=== PATIENT | female | born 1980 | race Caucasian/White ===

== ENCOUNTER 2017-01-29 20:12 | Emergency (ER) | payer BC, SELFPAY | END 2017-01-29 20:42 | disposition home or self-care (01) | PROVIDERS: Emergency Provider Nurse Practitioner; Family Provider Internal Medicine Adolescent Medicine; Visit Provider Nurse Practitioner | DX: J06.9 Acute upper respiratory infection, unspecified (principal) | CPT/HCPCS: 87804; 87880; 96372; 99201 ==

== ENCOUNTER → 2017-12-16 10:28 | Outpatient (POV) | payer BC, SELFPAY | PROVIDERS: Visit Provider Dermatology | DX: Z00.00 Encounter for general adult medical examination without abnormal findings (principal) ==

== ENCOUNTER → 2018-01-20 15:16 | Outpatient (POV) | payer BC, SELFPAY | PROVIDERS: Visit Provider Dermatology | DX: Z00.00 Encounter for general adult medical examination without abnormal findings (principal) ==

== ENCOUNTER → 2018-01-20 15:27 | Outpatient (POV) | payer BC, SELFPAY | PROVIDERS: Visit Provider Dermatology | DX: Z00.00 Encounter for general adult medical examination without abnormal findings (principal) ==

== ENCOUNTER → 2019-01-19 15:06 | Outpatient (CLI) | payer BC, SELFPAY ==
--- NOTE | 2019-01-19 15:11 | US_ITS ---
PROCEDURE: US TRANSVAGINAL CLINICAL INDICATION: US T/V- Pelvic pain COMPARISON: No exams were available for comparison FINDINGS: 08/17/2014 UTERUS: 10.1 x 5.1x 6.3 centimeters with a combined endometrial thickness of 1.1 centimeter LEFT OVARY: 2.0x2.6x 2.0 centimeter with a volume of 5.7 cubic centimeter. RIGHT OVARY: 1.8x3.0x1.4 centimeter with a volume of 4.2 cubic centimeter. No abnormal adnexal mass or fluid collection is apparent. IMPRESSION: Relative uterine enlargement without discrete lesion. Dictated by: Marito Lance 01/19/2019 16:39 Electronically signed by Marito Lance in [place] 01/19/2019 16:39
== END ==
PROVIDERS: PCP Internal Medicine Adolescent Medicine; Visit Provider Nurse Practitioner Obstetrics & Gynecology
DX: R10.2 Pelvic and perineal pain (principal)
CPT/HCPCS: 76830

== ENCOUNTER 2019-11-11 10:44 | Outpatient (RCR) | payer BC, SELFPAY ==
--- NOTE | 2019-11-11 11:49 | HMH.PTOPEV ---
PT Outpatient Evaluation Rehab PT Outpatient Evaluation Start: 11/11/19 11:18 Freq: Status: Active Protocol: Document 11/11/19 11:18 MIGUEL (Rec: 11/11/19 11:49 MIGUEL [id number]) Electronically Signed By Jethro Bedolla, PT 11/11/19 11:18 Outpatient Therapy Subjective History Subjective History Pt reports acute onset R sided neck pain beginning ~1 week ago. Pt reports 'I just woke up very stiff', with R sided neck pain, referred pain into R SH blade area, and now preogressed with radicular s/s down R UE into bicep/tricep area-'heavy and weak'. Chief Complaint Pain,Stiff,Paresthesia, Weakness Symptom Type Ache,Dull Symptoms Relieved By Rest/Positioning,Heat, Prescription Meds Symptoms Aggravated By Physical Activity,Lifting Prior Functional Limitations None Current Functional Limitations Reaching,Lifting,Housework Symptom Description Constant but Variable Level of pain today (0-10) 5 Pain scale - at its best (0-10) 5 Pain scale - at its worst (0-10) 8 Cervical Eval Palpation Cervical Muscles R CT Junction,L CT Junction,R Upper Trapezius,L Thoracic Paraspinals Cervical/Thoracic Palpation Findings Tenderness,Trigger Point, Muscle Guarding Posture Head/C-Spine Posture Sitting Position Neutral Position Head/C-Spine Posture Standing Position Neutral Position Flexibility Deficits Upper Trapezius Muscle Length (R) Moderate Tightness Levaetor Scapulae Muscle Length (R) Moderate Tightness Scalene Group Muscle Length (R) Moderate Tightness Passive Joint Mobility Cervical PIVM Dec: R OA L OA R AA L AA R C2/3 L C2/3 R C3/4 L C3/4 R C4/5 L C4/5 R C5/6 L C5/6 R C6/7 L C6/7 R C7/T1 L C7/T1 AROM Cervical Spine Extension Active Range of 0-40 Motion (degrees) Cervical Spine Flexion Active Range of 0-30 Motion (degrees) Cer
== END 2019-11-11 10:50 | disposition home or self-care (01) ==
LOC: PT 10:44
PROVIDERS: PCP Internal Medicine Adolescent Medicine; Visit Provider Nurse Practitioner Family
DX: S16.1XXA Strain of muscle, fascia and tendon at neck level, initial encounter (principal); M62.838 Other muscle spasm
CPT/HCPCS: 20560; 97010; 97014; 97110; 97140; 97163; G0283

== ENCOUNTER 2020-02-08 10:30 | Outpatient (RCR) | payer BC, SELFPAY | END 2020-02-08 10:35 | disposition home or self-care (01) | LOC: PT 10:30 | PROVIDERS: PCP Internal Medicine Adolescent Medicine; Visit Provider Nurse Practitioner Family | DX: S16.1XXA Strain of muscle, fascia and tendon at neck level, initial encounter (principal); M62.838 Other muscle spasm | CPT/HCPCS: 20560; 97010; 97012; 97014; 97110; 97140; 97163; G0283 ==

== ENCOUNTER 2020-05-07 18:56 | Emergency (ER) | payer BC, SELFPAY ==
[2020-05-07 18:58] VITALS: BP 156/97; PULSE 110; RESP 16; TEMP 36.5; O2SAT 98; BMI 30.1
[2020-05-07 19:18] VITALS: BMI 30.1
[2020-05-07 19:27] LABS: Potassium 3.4 mmoL/L (3.5-5.1); Sodium 137 mmol/L (136-145)
[2020-05-07 19:28] LABS: Chloride 100 mmol/L (98-107)
[2020-05-07 19:30] VITALS: BP 132/92; PULSE 81; RESP 14; O2SAT 100
[2020-05-07 19:30] LABS: Alanine Aminotransferase 116 U/L (12-78); Albumin Level 5.1 g/dl (3.5-5.0); Albumin/Globulin Ratio 1.2 (1.1-1.8); Alkaline Phosphatase 117 U/L (38-126); Anion Gap 18.4 mEq/L (5-15); Aspartate Amino Transferase 105 U/L (14-36); Bilirubin,Total 0.9 mg/dl (0.2-1.3); Blood Urea Nitrogen 14 mg/dl (7-17); Carbon Dioxide 22 mmol/L (22.0-30.0); Creatinine Clearance Estimated 129 mL/min (50-200); Estimated Glomerular Filt Rate 92 ml/min (>60); GFR (African American) 112 ML/MIN (>60); Globulin 4.3 g/dL (1.3-3.2); Total Protein,Serum 9.4 g/dl (6.3-8.2)
[2020-05-07 19:31] LABS: Calcium 9.8 mg/dl (8.4-10.2); Glucose 113 mg/dl (74-100)
[2020-05-07 19:32] LABS: Basophils # 0.1 K/mm3 (0-0.2); Basophils % 1.1 % (0.1-2.0); Eosinophils # 0.3 K/mm3 (0.0-0.4); Eosinophils % 3.2 % (0.1-12.0); Hematocrit 47.8 % (37.0-47.0); Hemoglobin 16.3 g/dL (12.2-16.2); Lymphocytes % 20.3 % (10-50); Mean Corpuscular HGB Conc 34.2 g/dL (31.8-35.4); Mean Corpuscular Hemoglobin 29.6 pg (27.0-31.2); Mean Corpuscular Volume 86.5 fl (81-99); Mean Platelet Volume 8.3 fl (7.4-10.4); Monocytes % 10.7 % (1.7-9.3); Neutrophils # 6.2 K/mm3 (1.8-7.8); Neutrophils % 64.8 % (37.0-80.0); Platelet Count 311 K/mm3 (142-424); Red Blood Count 5.52 M/mm3 (4.20-5.40); Red Cell Distribution Width 12.1 % (11.5-17.5); White Blood Count 9.6 K/mm3 (4.8-10.8)
--- NOTE | 2020-05-07 19:35 | PC.NURSE ---
Pt does not want CT. She states she just want some relief.
[2020-05-07 19:37] LABS: Microscopic, Urine URINE MICROSCOPIC (MICROSCOPIC)
[2020-05-07 19:39] LABS: Adenovirus,PCR Not Detected (NotDetected); Appearance,Urine SL CLOUDY (Clear); Blood, Urine TRACE-I (Negative); Color,Urine YELLOW (Yellow); Coronavirus NL63 Not Detected (NotDetected); Coronovirus HKU1,PCR Not Detected (NotDetected); Glucose,Urine (UA) Negative (Negative); Ketones,Urine TRACE (Negative); Leukocyte Esterase,Urine Negative (Negative); Nitrate,Urine Negative (Negative); Protein,Urine 2+ (Negative); Specific Gravity, Urine >= 1.030 (1.005-1.030); Urobilinogen,Urine 0.2 EU/dl (0.2)
[2020-05-07 19:40] LABS: Bordetella Pertussis Not Detected (NotDetected); Chlamydophila Pneumoniae, PCR Not Detected (NotDetected); Coronavirus 19, PCR Not Detected (NotDetected); Coronavirus 229E Not Detected (NotDetected); Coronavirus OC43 Not Detected (NotDetected); Human Metapneumovirus Not Detected (NotDetected); Influenza A, PCR Not Detected (NotDetected); Influenza AH1, 2009 Not Detected (NotDetected); Influenza AH1, PCR Not Detected (NotDetected); Influenza AH3,PCR Not Detected (NotDetected); Influenza B, PCR Not Detected (NotDetected); Mycoplasma Pneumoniae, PCR Not Detected (NotDetected); Parainfluenza 1, PCR Not Detected (NotDetected); Parainfluenza 2, PCR Not Detected (NotDetected); Parainfluenza 3, PCR Not Detected (NotDetected); Parainfluenza 4, PCR Not Detected (NotDetected); Respiratory Syncytial Virus Not Detected (NotDetected); Rhinovirus/Enterovirus Not Detected (NotDetected)
--- NOTE | 2020-05-07 19:44 | HMH.EDGENADL ---
ED Disposition Clinical Impression: Gastroenteritis Disposition: Home, Self-Care Condition on Discharge: Fair Instructions: DI for Diarrhea and Traveler's Diarrhea -- Adult, DI for Nausea -- Adult Additional Instructions: Zofran as needed for nausea and vomiting. Rest, plenty of fluids. Additional instructions for VOMITING/DIARRHEA: See your physician as soon as possible for further evaluation. Return immediately if severe abdominal pain, uncontrollable vomiting, shortness of breath, fever, vomiting of blood or abdominal distention. Prescriptions: Ondansetron [Zofran 4mg ODT] 4 mg PO TIDP PRN #10 tab.rapdis PRN Reason: Nausea And Vomiting Transmission Status: Received by [facility] Referrals: Enio Bliss MD [Primary Care Provider] - - Critical Care Critical Care Time: No Attestation: On , the high probability of a clinically significant, sudden or life threatening deterioration of the following system(s) required my full and direct attention, intervention and personal management. The time I documented below is in addition to time spent performing reported procedures but includes the following listed in this critical care notation. Medical Decision Making - Joby Inquiry Pt receiving controlled substance: No Vital Signs: 05/07/20 18:58 Temperature 97.7 F Temperature Source Oral Pulse Rate [Left Radial] 110 H Respiratory Rate 16 Blood Pressure [Right Arm] 156/97 H Blood Pressure Mean [Right Arm] 116 Blood Pressure Source [Right Arm] Automatic Cuff Blood Pressure Position [Right Arm] Supine 02 Sat by Pulse Oximetry 98 Oxygen Delivery Method Room Air - Lab Data Lab Results 05/07/20 19:15: WBC 9.6, RBC 5.52 H, Hgb 16.3 H, Hct 47.8 H, MCV 86.5, MCH 29.6, MCHC 34.2, RDW 12.1, Plt Count 311, MPV 8.3, Neut % (Auto) 64.8, Lymph % (Auto) 20.3, [place] % (Auto) 10.7 H, Eos % (Auto) 3.2, Baso % (Auto) 1.1, Neut # (Auto) 6.2, Lymph # (Auto) 2.0, [place] # (Auto) 1.0, Eos # (Auto) 0.3, Baso # (Auto) 0.1 05/07/20 19:15: Sodium 137, Potassium 3.4 L, Chloride 100, Carbon Dioxide 22, Anion Gap 18.4 H, BUN 14, Creatinine 0.70, Estimated Creat Clear 129, Estimated GFR 92, Est GFR ( Amer) 112, Glucose 113 H, Calcium 9.8, Total Bilirubin 0.9, AST 105 H, ALT 116 H, Alkaline Phosphatase 117, Total Protein 9.4 H, Albumin 5.1 H, Globulin 4.3 H, Albumin/Globulin Ratio 1.2 Result diagrams: 05/07/20 19:15 05/07/20 19:15 Orders (Tests/Meds): ED MEDICATIONS Generic Name Dose Route Start Last Admin Trade Name Freq PRN Reason Stop Dose Admin Sodium Chloride 1,000 mls @ 999 mls/hr 05/07/20 19:30 05/07/20 19:20 Sod Chlor 0.9% 1000ml Bag IV 05/07/20 20:30 999 mls/hr .Q1H1M GRAEME Administration Discontinued Medications Generic Name Dose Route Start Last Admin Trade Name Freq PRN Reason Stop Dose Admin Ondansetron HCl 4 mg 05/07/20 19:19 05/07/20 19:20 Ondansetron 4mg/2ml Vial IV 05/07/20 19:20 4 mg ONCE ONE Administration ORDERS Category Date Time Status C-Reactive Protein Stat Lab 05/07/20 19:15 Received Diarrhea 6-11 Panel, Cdiff PCR Stat Lab 05/07/20 19:43 Ordered Erythrocyte Sedimentation Rate Stat Lab 05/07/20 19:15 Received Full Resp Panel w/COVID ([facility]) Routine Lab 05/07/20 19:30 Received Urinalysis and Microscopic Stat Lab 05/07/20 19:30 Received Medical Decision Narrative: Discussed elevated liver enzymes. Patient says this is not a new finding, she has discussed it with her primary care doctor when she has had labs done in the office. General Adult HPI - General Chief complaint: Nausea/Vomiting/Diarrhea Stated complaint: n/v/d Time Seen by Provider: 05/07/20 19:35 Mode of Arrival: Ambulatory Limitations: No Limitations Description of Symptoms (Recalled from ER Triage Doc. by RN): Pt c/o N/V/D since 05/03. She reports decreased PO intake despite PO zofran and phenergan. She says her has had same symptoms and was covid tested with ne
[2020-05-07 19:52] LABS: C-Reactive Protein 18.4 mg/L (0-4)
[2020-05-07 20:00] VITALS: BP 125/84; PULSE 70; RESP 16; O2SAT 99
[2020-05-07 20:02] LABS: Bilirubin,Urine Negative (Negative)
[2020-05-07 20:03] LABS: Amorphous Sediment,Urine 1+ /lpf; Mucus,Urine 4+ /lpf; Squamous Epithelial Cell,Urine 20-50 #/hpf (0-5)
[2020-05-07 20:04] LABS: Erythrocyte Sedimentation Rate 15 mm/hr (0-20)
[2020-05-07 20:30] VITALS: BP 118/69; PULSE 81; RESP 18; O2SAT 100
[2020-05-07 21:08] LABS: Adenovirus F 40/41, stool Not Detected (NotDetected); Astrovirus Not Detected (NotDetected); Campylobacter Not Detected (NotDetected); Clostridium Difficile A/B, PCR Not Detected (NotDetected); Cyclospora Cayetanesis Not Detected (NotDetected); Entamoeba histolytica Not Detected (NotDetected); Enteroaggregative E coli Not Detected (NotDetected); Enteropathogenic E coli Not Detected (NotDetected); Enterotoxigenic E coli Not Detected (NotDetected); Giardia lamblia Not Detected (NotDetected); Norovirus Not Detected (NotDetected); Plesimonas Shigalloides, PCR Not Detected (NotDetected); Rotavirus A Not Detected (NotDetected); Salmonella, PCR Not Detected (NotDetected); Sapovirus Not Detected (NotDetected); Shiga-like toxin E coli Not Detected (NotDetected); Shigella Enterovasive E coli Not Detected (NotDetected); Vibrio Cholerae Not Detected (NotDetected); Vibrio, PCR Not Detected (NotDetected); Yersinia Entercolitica, PCR Not Detected (NotDetected)
[2020-05-07 21:55] VITALS: BP 125/81; PULSE 72; RESP 14; TEMP 36.4; O2SAT 99
[2020-05-10 08:35] LABS: Cryptosporidium Detected (NotDetected)
== END 2020-05-07 21:58 | disposition home or self-care (01) ==
PROVIDERS: Emergency Medicine; Emergency Provider Emergency Medicine; PCP Internal Medicine Adolescent Medicine
DX: Z20.822 Contact with and (suspected) exposure to COVID-19 (principal); K52.9 Noninfective gastroenteritis and colitis, unspecified
CPT/HCPCS: 80053; 81001; 85025; 85651; 86140; 87506; 87581; 87633; 87798; 96365; 96366; 96375; 99283; J2405

== ENCOUNTER → 2020-07-11 14:53 | Outpatient (POV) | payer BC, SELFPAY | PROVIDERS: Visit Provider Dermatology | DX: Z00.00 Encounter for general adult medical examination without abnormal findings (principal) ==

== ENCOUNTER → 2020-07-26 07:58 | Outpatient (CLI) | payer BC, SELFPAY ==
--- NOTE | 2020-07-26 07:58 | MM_ITS ---
PROCEDURE: MM DIG SCREENING MAMM BI W/CAD Digital Breast Tomosynthesis Included CLINICAL INDICATION: Routine Screening Mammogram COMPARISON: MG DMDBAV DIG MAMM-DX MONAE W/AVWS W/CAD from 05/01/2016 TECHNIQUE: Standard CC and MLO images and 3D Tomosynthesis was obtained. R2 CAD reviewed. FINDINGS: Breast parenchyma is heterogeneously dense which may lower the sensitivity of mammography. No new dominant mass or indirect evidence of malignancy. No suspicious type microcalcifications. There benign-appearing calcifications scattered in both breasts. IMPRESSION: Benign bilateral digital screening mammograms. BI-RAD Category: 2 Benign Finding FOLLOW-UP: 1 YR 1 Year Follow-up (A letter has been sent to the patient regarding results of the study.) Dictated by: Rony Mckinney MD 07/27/2020 11:03 Rony Mckinney MD in [place] 07/27/2020 11:03
[2020-07-26 09:16] LABS: Basophils % 0.6 % (0.1-2.0); Eosinophils # 0.2 K/mm3 (0.0-0.4); Eosinophils % 2.4 % (0.1-12.0); Hematocrit 36.3 % (37.0-47.0); Hemoglobin 12.9 g/dL (12.2-16.2); Lymphocytes # 2.2 K/mm3 (0.7-4.5); Mean Corpuscular HGB Conc 35.4 g/dL (31.8-35.4); Mean Corpuscular Hemoglobin 30.6 pg (27.0-31.2); Mean Corpuscular Volume 86.5 fl (81-99); Mean Platelet Volume 7.9 fl (7.4-10.4); Monocytes # 0.4 K/mm3 (0.1-1.0); Monocytes % 5.7 % (1.7-9.3); Neutrophils # 4.1 K/mm3 (1.8-7.8); Neutrophils % 59.3 % (37.0-80.0); Platelet Count 263 K/mm3 (142-424); Red Cell Distribution Width 12.9 % (11.5-17.5); White Blood Count 6.9 K/mm3 (4.8-10.8)
[2020-07-26 10:50] LABS: Alanine Aminotransferase 23 U/L (12-78); Albumin Level 4.3 g/dl (3.5-5.0); Albumin/Globulin Ratio 1.4 (1.1-1.8); Alkaline Phosphatase 50 U/L (38-126); Anion Gap 10.3 mEq/L (5-15); Aspartate Amino Transferase 28 U/L (14-36); Bilirubin,Total 0.5 mg/dl (0.2-1.3); Blood Urea Nitrogen 11 mg/dl (7-17); Carbon Dioxide 25 mmol/L (22.0-30.0); Chloride 108 mmol/L (98-107); Chol/HDL Ratio 3.8 (1-3.5); Cholesterol 199 mg/dl (140-200); Estimated Glomerular Filt Rate 110 ml/min (>60); GFR (African American) 133 ML/MIN (>60); Glucose 86 mg/dl (74-100); HDL Cholesterol 52 mg/dl (40-60); Potassium 4.3 mmoL/L (3.5-5.1); Sodium 139 mmol/L (136-145); Total Protein,Serum 7.3 g/dl (6.3-8.2); Triglycerides 71 mg/dl (30-150); VLDL Cholesterol 14 mg/dL (0-40)
[2020-07-26 11:01] LABS: Direct LDL Cholesterol 114.73 mg/dL (100-129)
== END ==
PROVIDERS: PCP Internal Medicine Adolescent Medicine; Visit Provider Nurse Practitioner Obstetrics & Gynecology
DX: Z12.31 Encounter for screening mammogram for malignant neoplasm of breast (principal); Z01.419 Encounter for gynecological examination (general) (routine) without abnormal findings
CPT/HCPCS: 36415; 77063; 77067; 80053; 80061; 85025

== ENCOUNTER 2021-01-27 20:48 | Emergency (ER) | payer BC, SELFPAY ==
[2021-01-27 20:59] VITALS: BP 153/77; PULSE 71; RESP 16; TEMP 36.5; O2SAT 100; BMI 29.2
--- NOTE | 2021-01-27 21:11 | HMH.EDUTC ---
[facility] [place] Dis[place] Clinical Impression: Jaw pain, Fever blister Disposition: Home, Self-Care Condition on Discharge: Good Instructions: DI for Temporomandibular Disorder, DI for Cold Sores Additional Instructions: Take the medications as directed. Follow up with your regular doctor. Follow up with your dentist. GO TO THE ER FOR ANY WORSENING SYMPTOMS The baclofen is a muscle relaxer. Don't take it if you take your flexeril. That would make you too drowsy. the baclofen will make you drowsy, so don't drive or operate heavy machinery after taking it. Prescriptions: Baclofen 20 mg PO TIDP PRN #30 tab PRN Reason: Muscle Spasm Transmission Status: Received by [id number] methylPREDNISolone [Medrol] 4 mg PO DIRECTED 6 Days #21 packet Transmission [facility]: [facility] Acyclovir [Zovirax 400mg tablet] 400 mg PO TID 7 Days #21 tab Transmission Status: Received by [facility] Acyclovir [Zovirax 5% ointment 5gm] 1 applicatio TP 5XDAY 7 Days #5 gm Transmission Status[facility] Referrals: Enio Bliss MD [Primary Care Provider] - Time of Disposition: 21:44 Medical Decision Making - Medical Records Medical records reviewed: No: I reviewed the patient's medical records. - Joby Inquiry Pt receiving controlled substance: No Vital Signs: 01/27/21 20:59 01/27/21 21:19 Temperature 97.7 F 97.7 F Temperature Source Oral Pulse Rate 71 Pulse Rate [Left] 71 Respiratory Rate 16 16 Blood Pressure 153/77 H Blood Pressure [Right Arm] 153/77 H Blood Pressure Mean [Right Arm] 102 02 Sat by Pulse Oximetry 100 Orders (Tests/Meds): ED MEDICATIONS Discontinued Medications Generic Name Dose Route Start Last Admin Trade Name Freq PRN Reason Stop Dose Admin Ketorolac Tromethamine 60 mg 01/27/21 21:11 01/27/21 21:18 Ketorolac 60mg/2ml Vial IM 01/27/21 21:12 60 mg ONCE ONE Administration Methylprednisolone Sodium Succinate 125 mg 01/27/21 21:11 01/27/21 21:16 Methylprednisolone Sod Succ 125mg Vial IM 01/27/21 21:12 125 mg ONCE ONE Administration [facility] [place] HPI - General Stated complaint: jaw/tooth ache Time Seen by Provider: 01/27/21 21:13 Mode of Arrival: Ambulatory Source of Information: Patient Limitations: No Limitations Description of Symptoms (Recalled from Triage Doc. by RN): pt c/o L lower jaw pain ongoing since 01/23. she called her dentist who sent her in some flexeril. pt states it has not been helping. HEENT Symptoms (Recalled from RN notes): Yes (L jaw pain) Resp Symptoms (Recalled from RN notes): No Skin Symptoms (Recalled from RN notes): No MS Symptoms (Recalled from RN notes): No Functional Status (Recalled from RN notes): wnl - History of Present Illness Provider Complaint: She states that for the past 1 week she has been having worsening left jaw pain. She has a history of tmj and it feels like that is flaring up. She called her dentist earlier in the week and she was prescribed flexeril, which usually helps. It has not helped this time. - Related Data Previous Rx's Medication Instructions Recorded Ondansetron [Zofran 4mg ODT] 4 mg PO TIDP PRN #10 tab.rapdis 05/07/20 Acyclovir [Zovirax 400mg tablet] 400 mg PO TID 7 Days #21 tab 01/27/21 Acyclovir [Zovirax 5% ointment 5gm] 1 applicatio TP 5XDAY 7 Days #5 gm 01/27/21 Baclofen 20 mg PO TIDP PRN #30 tab 01/27/21 methylPREDNISolone [Medrol] 4 mg PO DIRECTED 6 Days #21 01/27/21 packet Allergies Allergy/AdvReac Type Severity Reaction Status Date / Time promethazine [From Phenergan] Allergy Intermediate CAN TAKE Verified 07/03/20 10:02 PO NOT IV, MAKES SKIN CRAWL pseudoephedrine Allergy Unknown - Verified 07/03/20 10:02 - Worker's Comp Is this a Worker's Comp case?: No [facility] History - Hepatitis A Screen Drug use history?: No High risk sexual behaviors?: No History of sexually transmitted
[2021-01-27 21:19] VITALS: BP 153/77; PULSE 71; RESP 16; TEMP 36.5
== END 2021-01-27 21:50 | disposition home or self-care (01) ==
PROVIDERS: Emergency Provider Nurse Practitioner Family; PCP Internal Medicine Adolescent Medicine
DX: R68.84 Jaw pain (principal); B00.1 Herpesviral vesicular dermatitis
CPT/HCPCS: 96372; 99202; G0463

== ENCOUNTER 2021-08-02 15:39 | Emergency (ER) | payer BC, SELFPAY ==
[2021-08-02 16:09] VITALS: BP 141/78; PULSE 70; RESP 18; TEMP 36.6; O2SAT 100; BMI 30.1
[2021-08-02 16:27] LABS: Apearance,Urine Slightly Cloudy (Clear); Bilirubin,Urine Negative (Negative); Blood, Urine Negative (Negative); Color,Urine Dark Yellow (Yellow); Glucose,Urine (UA) Negative (Negative); Ketones,Urine TRACE (Negative); PH,Urine 6.5 (5.0-8.5); Protein,Urine 1+ (Negative); Specific Gravity, Urine >= 1.030 (1.005-1.030); UTC Leukocyte Esterase,Urine Trace (Negative); UTC Nitrate,Urine Negative (Negative); Urobilinogen,Urine 0.2 EU/dl (0.2)
[2021-08-02 16:33] VITALS: BP 170/89; PULSE 72; RESP 17; TEMP 36.8; O2SAT 100; BMI 30.1
--- NOTE | 2021-08-02 16:36 | CT_ITS ---
PROCEDURE INFORMATION: Exam: CT Abdomen And Pelvis Without Contrast Exam date and time: 08/02/2021 4:46 PM Age: 41 years old Clinical indication: Abdominal pain; Flank; Right; Prior surgery; Surgery date: 6+ months; Surgery type: PT states that she has had her gallbladder and appendix removed; Additional info: RT flank pain TECHNIQUE: Imaging protocol: Computed tomography of the abdomen and pelvis without contrast. Radiation optimization: All CT scans at this facility use at least one of these dose optimization techniques: automated exposure control; mA and/or kV adjustment per patient size (includes targeted exams where dose is matched to clinical indication); or iterative reconstruction. COMPARISON: US TRANSVAGINAL 01/19/2019 3:13 PM FINDINGS: Lungs: No acute findings in the visualized lower lungs. No consolidation. Diaphragm: A minimal hiatal hernia. Liver: Upper normal liver size. No mass seen on this nonenhanced exam. Gallbladder and bile ducts: Cholecystectomy clips. Biliary tree is within normal limits. Pancreas: The pancreas is normal. Spleen: The spleen is normal. Adrenal glands: The adrenal glands are normal. Kidneys and ureters: At least moderate right hydronephrosis and proximal to mid hydroureter. The distal ureter is not significantly dilated, and slightly indistinct. 3 mm rounded calcification abutting the distal right ureter suspicious for obstructing stone just above the ureterovesical junction, series 3, image 101, and coronal series 1001, image 33. This has HU density of 340, but is poorly seen on the manager economic topogram due to tiny size. No hydronephrosis, hydroureter or obstructing calcified stones on the left. No other calcified renal stones. Stomach and bowel: The colon is diffusely empty and contracted which likely accounts for thickened appearance, differential would be colitis. There is no pericolic fluid, no extraluminal gas bubbles.There is no evidence of intestinal perforation or obstruction. Minimal hiatal hernia, no acute findings in the stomach. Appendix: Post appendectomy. Intraperitoneal space: There is no free intraperitoneal air. There is no significant free intraperitoneal fluid. Vasculature: There is no aortic aneurysm. No portal venous gas. Lymph nodes: No significantly enlarged lymph nodes by short axis criteria. Urinary bladder: Urinary bladder is nearly empty and contracted and not well evaluated. No intraluminal calcified stones. Reproductive: Prominent uterine endometrial stripe appears approximately 1.3 cm thickness sagittal image 56, within upper limits normal. 1.8 cm left adnexal follicular cyst, within normal limits for age. Coronal image 23, axial image 86. Bones/joints: There are spinal degenerative changes, with multilevel disc narrrowing and spondylosis. Mild T11 vertebral compression fracture deformity appears chronic. No acute appearing fracture or high-grade listhesis, as visualized. Soft tissues: A small fatty periumbilical hernia. No herniated bowel loops. There are no soft tissue masses or fluid collections. IMPRESSION: 1. Moderate right hydronephrosis and proximal hydroureter, with likely obstructing 3 mm calcified stone just above the right ureterovesical junction as detailed above. 2. The colon is empty and diffusely contracted which likely accounts for thickened appearance, though differential would be colitis. There is no pericolic fluid or extraluminal gas bubbles. 3. Additional nonemergency and chronic appearing findings as above, including prior cholecystectomy, spinal degenerative changes, very small hiatal hernia, 1.8 cm left ovarian follicular cy
--- NOTE | 2021-08-02 16:37 | HMH.EDGENADL ---
ED Disposition Clinical Impression: Ureteral stone Disposition: Home, Self-Care Condition on Discharge: Good Instructions: DI for Kidney Stones Additional Instructions: follow up urology Referrals: Enio Bliss MD [Primary Care Provider] - Mahesh Kim MD [Staff Physician] - - Critical Care Critical Care Time: No Attestation: On 08/02/21, the high probability of a clinically significant, sudden or life threatening deterioration of the following system(s) required my full and direct attention, intervention and personal management. The time I documented below is in addition to time spent performing reported procedures but includes the following listed in this critical care notation. Medical Decision Making - Medical Records Medical records reviewed: Yes: I reviewed the patient's medical records. - Joby Inquiry Pt receiving controlled substance: No Vital Signs: 08/02/21 16:09 08/02/21 16:33 08/02/21 17:04 Temperature 97.9 F 98.2 F Temperature Source Oral Oral Pulse Rate [Left] 70 72 62 Respiratory Rate 18 17 Blood Pressure [Right Arm] 141/78 H 170/89 H 159/69 H Blood Pressure Mean [Right Arm] 99 116 99 Blood Pressure Position [Right Arm] Sitting 02 Sat by Pulse Oximetry 100 100 100 Oxygen Delivery Method Room Air Room Air 08/02/21 17:58 Temperature Temperature Source Pulse Rate [Left] 58 L Respiratory Rate Blood Pressure [Right Arm] 138/76 Blood Pressure Mean [Right Arm] 96 Blood Pressure Position [Right Arm] Sitting 02 Sat by Pulse Oximetry 95 Oxygen Delivery Method Room Air - Lab Data Lab Results 08/02/21 16:24: Urine Color Dark yellow, Urine Appearance Slightly cloudy, Urine pH 6.5, Ur Specific [place] >= 1.030, Urine Protein 1+, Urine Glucose (UA) Negative, Urine Ketones Trace, Urine Blood Negative, Urine Nitrate Negative, Urine Bilirubin Negative, Urine Urobilinogen 0.2, Ur Leukocyte Esterase Trace 08/02/21 : Urine HCG, Qual Negative Orders (Tests/Meds): ED MEDICATIONS Discontinued Medications Generic Name Dose Route Start Last Admin Trade Name Freq PRN Reason Stop Dose Admin Hydromorphone HCl 0.5 mg 08/02/21 17:21 08/02/21 17:22 Hydromorphone 2mg/Ml Syringe IM 08/02/21 17:22 0.5 mg ONCE ONE Administration Hydromorphone HCl 0.5 mg 08/02/21 17:49 08/02/21 17:50 Hydromorphone 2mg/Ml Syringe IM 08/02/21 17:50 0.5 mg ONCE ONE Administration Ketorolac Tromethamine 30 mg 08/02/21 16:38 08/02/21 16:43 Ketorolac 30mg/Ml Vial IV 08/02/21 16:39 30 mg ONCE ONE Administration Ondansetron HCl 8 mg 08/02/21 16:38 08/02/21 16:43 Ondansetron 4mg/2ml Vial IV 08/02/21 16:39 8 mg ONCE ONE Administration ORDERS Category Date Time Status Urine Culture Stat Micro 08/02/21 16:24 Received General Adult HPI - General Stated complaint: Possible Kidney stones Time Seen by Provider: 08/02/21 16:38 Description of Symptoms (Recalled from ER Triage Doc. by RN): patient comes in with complaints of possible kidney stone. patient states that symptoms began this afternoon. patient states that she is in alot of pain, it is hurting in her lower back and wraps around to the front of her stomach - History of Present Illness HPI narrative: rt flank pain rad to back, mod-sev, assoc with n/v Onset (ago): hour(s) Radiation: back Severity: moderate Quality: dull Consistency: constant Relieving factors: none Exacerbating factors: none Associated symptoms: nausea/vomiting - Related Data Previous Rx's Medication Instructions Recorded Ondansetron [Zofran 4mg ODT] 4 mg PO TIDP PRN #10 tab.rapdis 05/07/20 Acyclovir [Zovirax 400mg tablet] 400 mg PO TID 7 Days #21 tab 01/27/21 Acyclovir [Zovirax 5% ointment 5gm] 1 applicatio TP 5XDAY 7 Days #5 gm 01/27/21 Baclofen 20 mg PO TIDP PRN #30 tab 01/27/21 methylPREDNISolone [Medrol] 4 mg PO DIRECTED 6 Days #21 01/27/21 packet Allergies Allergy/AdvReac Type Severity Reac
[2021-08-02 16:57] LABS: Urine Pregnancy, HCG Qual. Negative (Negative)
--- NOTE | 2021-08-02 16:59 | PC.NURSE ---
pt ambulatory to restroom without complications
[2021-08-02 17:04] VITALS: BP 159/69; PULSE 62; O2SAT 100
--- NOTE | 2021-08-02 17:30 | PC.NURSE ---
pt resting offered warm blankets pt refused
[2021-08-02 17:58] VITALS: BP 138/76; PULSE 58; O2SAT 95
--- NOTE | 2021-08-02 18:38 | PC.NURSE ---
pt waiting for friend to come to ed and pick her up and take her home
[2021-08-02 18:58] VITALS: BP 124/70; PULSE 60; RESP 17; TEMP 36.8; O2SAT 98
== END 2021-08-02 19:03 | disposition home or self-care (01) ==
LOC: UTC 15:45 → ER 16:26
PROVIDERS: Nurse Practitioner Family; Emergency Provider Emergency Medicine; PCP Internal Medicine Adolescent Medicine
DX: N20.1 Calculus of ureter (principal); Z88.8 Allergy status to other drugs, medicaments and biological substances
CPT/HCPCS: 74176; 81003; 81025; 87086; 87088; 87186; 96374; 96375; 96376; 99284; J2405

== ENCOUNTER 2022-06-22 11:23 | Emergency (ER) | payer BC, SELFPAY ==
[2022-06-22 11:25] VITALS: BP 133/87; PULSE 88; RESP 20; TEMP 36.6; O2SAT 97; BMI 31.6
[2022-06-22 11:43] VITALS: BP 133/87; PULSE 88; RESP 20; TEMP 36.6; O2SAT 97
[2022-06-22 11:43] LABS: UTC Strep Screen (Rapid) Positive (Negative)
--- NOTE | 2022-06-22 11:58 | EXP.UTC ---
Discharge Plan Disposition Patient Disposition: Home, Self-Care Condition: Good Prescriptions Prescriptions: New ondansetron 4 mg tablet,disintegrating 4 mg PO Q8H PRN (Reason: nausea and vomiting) Qty: 10 0RF penicillin V potassium 500 mg tablet 500 mg PO BID Qty: 20 0RF Referrals Follow up/Referrals: Enio Bliss MD [Primary Care Provider] - See instructions Activity Restrictions/Add. Instructions Additional Instructions/Restrictions: *Monitor Temp, Over the counter Motrin or Tylenol as directed/as needed Tylenol every 4 hours and Motrin every 6 hours (as long as your family doctor has told you that you can take it) for fever or pain. and straight to ER if unable to lower temp less than 101.0 after medication given *Warm salt water gargles may help to soothe the throat *Throat Lozenges? *Warm fluids like tea with honey may help to soothe the throat? *Sleep elevated *Humidifier/Vaporizer *If you did not take Penicillin shot or was unable to, start taking antibiotic immediately and make sure that you take it for the FULL length of time although you should start to feel better in 24-48 hours *change toothbrush and toothpaste 24-48 hours after starting to take antibiotics so you do not reinfect yourself Monitor Temp. Tylenol and/or Ibuprofen as needed. ER if fever is no less than 101 despite alternating Tylenol and Ibuprofen * Encourage fluids, water, Gatorade, powerade, pedialyte if infant/toddler/or child *Cold fluids, popsicles and ice cream may feel good on his throat Follow up IMMEDIATELY for new or worsening symptoms or no Noticeable improvement over the next 48-72 hours. 911 for difficulty breathing or swallowing Clinical Impressions Clinical Impression: Strep throat Instructions Patient Instructions: DI for Strep Throat, Strep Throat, Penicillin V Potassium Discharge ED Provider: Karyna Vega [facility] General Stated complaint: Sore throat, nausea, bodyaches, strep exposure Mode of Arrival: Ambulatory Source of Information: Patient Limitations: No Limitations Time Seen by Provider: 06/22/22 11:30 Description of Symptoms (Recalled from Triage Doc. 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 Related Data Previous Rx's Medication Instructions Recorded ondansetron 4 mg disintegrating 4 mg PO Q8H PRN nausea and 06/22/22 tablet vomiting #10 tabs penicillin V potassium 500 mg 500 mg PO BID #20 tabs 06/22/22 tablet Allergies Allergy/AdvReac Type Severity Reaction Status Date / Time promethazine [From Phenergan] Allergy Intermediate CAN TAKE Verified 05/13/22 15:17 PO NOT IV, MAKES SKIN CRAWL pseudoephedrine Allergy Unknown - Verified 05/13/22 15:17 Worker's Comp Is this a Worker's Comp case?: No [facility] Dis[facility]: The information contained in this section may have been updated after the patient was seen, as this information can be updated by other users. Medical History Hx of cyst of breast Surgical History (Updated 03/12/22 @ 15:29 by PERICO Welsh) Hx of appendectomy Hx of cholecystectomy Family History Father Cancer Bone Other Diabetes Thyroid disorder Social History Smoking Status: Never smoker
== END 2022-06-22 12:10 | disposition home or self-care (01) ==
PROVIDERS: Emergency Provider Nurse Practitioner; PCP Internal Medicine Adolescent Medicine
DX: J02.0 Streptococcal pharyngitis (principal); R11.2 Nausea with vomiting, unspecified; R51.9 Headache, unspecified
CPT/HCPCS: 87880; 99212; 99214; G0463

== ENCOUNTER 2022-12-01 15:03 | Emergency (ER) | payer BC, SELFPAY ==
[2022-12-01 15:04] VITALS: BP 136/82; PULSE 88; RESP 18; TEMP 36.7; O2SAT 100; BMI 32.4
--- NOTE | 2022-12-01 15:22 | EXP.UTC ---
Discharge Plan Disposition Patient Disposition: Home, Self-Care Condition: Good Prescriptions Prescriptions: New benzonatate [benzonatate] 100 mg capsule 100 mg PO TIDP PRN (Reason: Cough) Qty: 30 0RF methylprednisolone 4 mg Tablets,Dose Pack 4 mg PO DIRECTED Qty: 21 0RF amoxicillin-pot clavulanate 875-125 mg Tablet 1 tab PO Q12H Qty: 20 0RF Referrals Follow up/Referrals: Enio Bliss MD [Primary Care Provider] - See instructions Activity Restrictions/Add. Instructions Additional Instructions/Restrictions: Drink plenty of fluids. Take tylenol or ibuprofen for pain or fever. Take the medications as directed. Follow up with your regular doctor. GO TO THE ER FOR ANY WORSENING SYMPTOMS Clinical Impressions Clinical Impression: Acute bronchitis, Acute viral syndrome Stand Alone Forms Stand Alone Forms: Work/School Release Instructions Patient Instructions: Acute Bronchitis, DI for Acute Bronchitis, Ceftriaxone Injection, Dexamethasone Injection Discharge ED Provider: Rony Boothe [facility] [place] HPI General Stated complaint: ander,SOA Time Seen by Provider: 12/01/22 15:22 History of Present Illness Provider Complaint: She states that for the past 3 days she has had cough, chest congestion, sore throat, and sinus congestion. Related Data Previous Rx's Medication Instructions Recorded amoxicillin 875 mg-potassium 1 tab PO Q12H #20 tabs 12/01/22 clavulanate 125 mg tablet benzonatate 100 mg capsule 100 mg PO TIDP PRN Cough #30 caps 12/01/22 methylprednisolone 4 mg tablets in 4 mg PO DIRECTED #21 tabs 12/01/22 a dose pack Allergies Allergy/AdvReac Type Severity Reaction Status Date / Time promethazine [From Phenergan] Allergy Intermediate CAN TAKE Verified 12/01/22 15:25 PO NOT IV, MAKES SKIN CRAWL pseudoephedrine Allergy Unknown - Verified 12/01/22 15:25 [facility] Disclaimer: The information contained in this section may have been updated after the patient was seen, as this information can be updated by other users. Medical History Hx of cyst of breast Surgical History Hx of appendectomy Hx of cholecystectomy Family History Father Cancer Bone Other Diabetes Thyroid disorder Social History Smoking Status: Never smoker alcohol intake: never substance use type: denies use current occupational status: other Travel in the last 8 weeks: None household members: spouse and family housing: house ROS Obtained: Yes All systems reviewed & no additional complaints except as documented Constitutional Constitutional: Reports chills and Reports fever(s) Eyes Eyes: Denies eye discharge ENT Ears, Nose, Mouth, and Throat: Reports as per HPI Cardiovascular Cardiovascular: Denies chest pain Respiratory Respiratory: Denies chest congestion and Reports cough Gastrointestinal Gastrointestingal: Reports nausea; Denies abdominal pain, constipation, cramping, diarrhea or vomiting Musculoskeletal Musculoskeletal: Denies arthralgias Integumentary/Breasts Skin/Breast: Denies rash Neurologic Neurologic: Denies paresthesias Physical Exam General General appearance: alert and in no apparent distress Eye Eye exam: Present normal appearance, PERRL and EOMI ENT ENT exam: Present mucous membranes moist and normal external ear exam Expanded ENT Exam External ear exam: Present normal external inspection TM/Canal exam: Bilateral TM: erythema and bulging Nose exam: Absent sinus tenderness Nasal speculum exam: Bilateral: normal Mouth exam: Present normal external inspection; Absent drooling Teeth exam: Present normal inspection Throat exam: Present tonsillar erythema and tonsillomegaly Neck Neck exam: Present normal inspection, full RO
[2022-12-01 16:30] VITALS: BP 136/82; PULSE 88; RESP 18; TEMP 37; O2SAT 100
[2022-12-01 16:34] LABS: Adenovirus,PCR Not Detected (NotDetected); Coronavirus 19, PCR Not Detected (NotDetected); Coronavirus 229E Not Detected (NotDetected); Coronavirus NL63 Not Detected (NotDetected); Coronavirus OC43 Not Detected (NotDetected); Coronovirus HKU1,PCR Not Detected (NotDetected); Human Metapneumovirus Not Detected (NotDetected); Influenza A, PCR Not Detected (NotDetected); Influenza AH1, 2009 Not Detected (NotDetected); Influenza AH1, PCR Not Detected (NotDetected); Influenza AH3,PCR Not Detected (NotDetected); Influenza B, PCR Not Detected (NotDetected); Parainfluenza 1, PCR Not Detected (NotDetected); Parainfluenza 2, PCR Not Detected (NotDetected); Parainfluenza 3, PCR Not Detected (NotDetected); Parainfluenza 4, PCR Not Detected (NotDetected); Respiratory Syncytial Virus Not Detected (NotDetected)
[2022-12-01 18:57] LABS: Rhinovirus/Enterovirus Detected (NotDetected)
== END 2022-12-01 16:30 | disposition home or self-care (01) ==
PROVIDERS: Emergency Provider Nurse Practitioner Family; PCP Internal Medicine Adolescent Medicine
DX: J20.9 Acute bronchitis, unspecified (principal); B34.1 Enterovirus infection, unspecified
CPT/HCPCS: 87632; 87635; 96372; 99212; 99214; G0463; J0696

== ENCOUNTER 2023-01-05 16:20 | Emergency (ER) | payer BC, SELFPAY ==
[2023-01-05 16:35] VITALS: BP 134/86; PULSE 86; RESP 20; TEMP 36.7; O2SAT 98; BMI 30.4
--- NOTE | 2023-01-05 16:49 | XR_ITS ---
PROCEDURE INFORMATION: Exam: XR Lumbosacral Spine Exam date and time: 01/05/2023 4:45 PM Age: 42 years old Clinical indication: Other: Pop when bending over; Additional info: [place] a pop when bending over TECHNIQUE: Imaging protocol: Radiologic exam of the lumbosacral spine. Views: 2 or 3 views. COMPARISON: CT ABDOMEN PELVIS WO CON 08/02/2021 4:46 PM FINDINGS: Bones/joints: The thoracolumbar spine demonstrates mild degenerative changes at multiple levels. There are mild marginal osteophytes at multiple levels. Mild endplate discogenic degenerative changes are also present, predominantly at L3-L4 and L4-L5. Schmorl's node degenerative changes are also present. There is slight retrolisthesis of L5 on S1. There is mild straightening of the normal lumbar lordotic curvature. Alignment is otherwise intact. There are mild degenerative changes of the sacroiliac joints. Soft tissues: Post cholecystectomy clips are present in the right upper quadrant. IMPRESSION: 1. No acute posttraumatic abnormality. 2. Mild degenerative changes.
--- NOTE | 2023-01-05 16:49 | EXP.UTC ---
Discharge Plan Disposition Patient Disposition: Home, Self-Care Condition: Good Prescriptions Prescriptions: New etodolac 200 mg capsule 200 mg PO Q8H PRN (Reason: pain) Qty: 20 0RF tizanidine 4 mg capsule 4 mg PO Q8H PRN (Reason: muscle spasm) Qty: 12 0RF Referrals Follow up/Referrals: Enio Bliss MD [Primary Care Provider] - See instructions Activity Restrictions/Add. Instructions Additional Instructions/Restrictions: *Etodolac ronald 8 hours with meal as needed for pain/inflammation *Remember you had a Toradol shot in the clinic today, which is similar to Etodolac so do not start until tomorrow *Not additional anti-inflammatory like Ibuprofen, motrin, aleve, advil with the above amount of Etodolac. You can still take Tylenol every 4 hours as needed if you need something else for pain *Ice 20 minutes every 2 hours for the first 48 hours after the initial injury followed by moist heat every 20 minutes 3-4 times a day to affected area *Muscle relaxer every 8 hours as needed for muscle spasms but remember, it WILL cause drowsiness You cannot take it and drive, operate machinery or care for small children. *Keep this area active, no movement leads to more stiffness, However take it easy and avoid heavy lifting pushing or pulling *Follow up with you family doctor if no improvement for further treatment Clinical Impressions Clinical Impression: Low back pain Qualifiers: Chronicity: unspecified Back pain laterality: unspecified Sciatica presence: without sciatica Qualified Code(s): M54.50 - Low back pain, unspecified Stand Alone Forms Stand Alone Forms: Work/School Release Instructions Patient Instructions: Low Back Pain, Tizanidine, Etodolac Discharge ED Provider: Karyna Vega [facility] General Stated complaint: back pain, no accident Mode of Arrival: Ambulatory Source of Information: Patient Limitations: No Limitations Time Seen by Provider: 01/05/23 16:49 Description of Symptoms (Recalled from Triage Doc. by RN): PATIENT C/O LOWER BACK PAIN SINCE YESTERDAY. SHE STATES SHE WAS BENDING OVER TO PUT AWAY A KING AND FELT A POP HEENT Symptoms (Recalled from RN notes): No Resp Symptoms (Recalled from RN notes): No Skin Symptoms (Recalled from RN notes): No MS Symptoms (Recalled from RN notes): Yes Functional Status (Recalled from RN notes): WNL History of Present Illness Provider Complaint: Patient states that she was bent over yesterday putting away a cast iron skillet when she felt a pop in her lower back and has been having pain and muscle spasms ever since states that she has been taking Motrin and left over flexeril that she had from her shoulder but it hasnt helped so today she came in to see if there was something else she could get to help Denies any other complaints Denies loss of control of bowel or bladder Related Data Previous Rx's Medication Instructions Recorded etodolac 200 mg capsule 200 mg PO Q8H PRN pain #20 caps 01/05/23 tizanidine 4 mg capsule 4 mg PO Q8H PRN muscle spasm #12 01/05/23 caps Allergies Allergy/AdvReac Type Severity Reaction Status Date / Time promethazine [From Phenergan] Allergy Intermediate CAN TAKE Verified 12/01/22 15:25 PO NOT IV, MAKES SKIN CRAWL pseudoephedrine Allergy Unknown - Verified 12/01/22 15:25 Worker's Comp Is this a Worker's Comp case?: No [facility] Disclaimer: The information contained in this section may have been updated after the patient was seen, as this information can be updated by other users. Medical History Hx of cyst of breast Surgical History Hx of appendectomy Hx of cholecystectomy Family History Father Cancer Bone Other Diabetes Thyroid disorder Social History Smoking Status:
[2023-01-05 16:50] LABS: UTC Pregnancy Test, Urine Negative (Negative)
[2023-01-05 17:39] VITALS: BP 134/86; PULSE 86; RESP 20; TEMP 36.7; O2SAT 98
== END 2023-01-05 17:56 | disposition home or self-care (01) ==
PROVIDERS: Emergency Provider Nurse Practitioner; PCP Internal Medicine Adolescent Medicine
DX: M54.50 Low back pain, unspecified (principal); M62.830 Muscle spasm of back
CPT/HCPCS: 72100; 81025; 96372; 99212; 99214; G0463

== ENCOUNTER 2024-11-19 10:08 | Outpatient (CLI) | payer BC, SELFPAY ==
[2024-11-19 10:59] LABS: Hematocrit 40.2 % (37.0-47.0); Hemoglobin 13.2 g/dL (12.2-16.2); Immature Granulocytes % 0.3 %; Mean Corpuscular HGB Conc 32.8 g/dL (31.8-35.4); Mean Corpuscular Hemoglobin 30.0 pg (27.0-31.2); Mean Corpuscular Volume 91.4 fl (81-99); Nucleated Red Blood Cells % 0 %; Platelet Count 297 K/mm3 (142-424); Red Blood Count 4.40 M/mm3 (4.20-5.40); Red Cell Distribution Width-SD 39.5 fL; White Blood Count 7.0 K/mm3 (4.8-10.8)
[2024-11-19 11:59] LABS: Alanine Aminotransferase 118 U/L (12-78); Albumin Level 4.0 g/dl (3.5-5.0); Albumin/Globulin Ratio 1.4 (1.1-1.8); Alkaline Phosphatase 86 U/L (38-126); Anion Gap 13.9 mEq/L (5-15); Aspartate Amino Transferase 87 U/L (14-36); Bilirubin,Total 0.7 mg/dl (0.2-1.3); Blood Urea Nitrogen 12 mg/dl (7-17); Calcium 9.3 mg/dl (8.4-10.2); Carbon Dioxide 27 mmol/L (22.0-30.0); Chloride 103 mmol/L (98-107); Cholesterol 206 mg/dl (140-200); Creatinine,Serum 0.70 mg/dl (0.52-1.04); Estimated Glomerular Filt Rate 90 ml/min (>60); GFR (African American) 109 ML/MIN (>60); Globulin 2.9 g/dL (1.3-3.2); Glucose 91 mg/dl (74-100); HDL Cholesterol 50 mg/dl (40-60); Potassium 4.9 mmoL/L (3.5-5.1); Sodium 139 mmol/L (136-145); Total Protein,Serum 6.9 g/dl (6.3-8.2); Triglycerides 90 mg/dl (30-150)
[2024-11-19 12:10] LABS: C-Reactive Protein 1.4 mg/L (0-4)
[2024-11-19 12:17] LABS: 25-OH Vitamin D, Total 33.8 ng/mL (30-100)
[2024-11-19 12:30] LABS: Thyroid Stimulating Hormone 1.96 uIU/mL (0.465-4.68)
[2024-11-20 08:13] LABS: Cytomegalovirus (CMV) Ab, IgG <0.60 U/mL (0.00-0.59); Cytomegalovirus (CMV) Ab, IgM <30.0 AU/mL (0.0-29.9)
== END 2024-11-19 23:59 | disposition home or self-care (01) ==
LOC: LAB 10:08
PROVIDERS: PCP Internal Medicine Adolescent Medicine; Visit Provider Nurse Practitioner Obstetrics & Gynecology
DX: Z11.9 Encounter for screening for infectious and parasitic diseases, unspecified (principal); E03.9 Hypothyroidism, unspecified; N94.6 Dysmenorrhea, unspecified; N92.0 Excessive and frequent menstruation with regular cycle
CPT/HCPCS: 36415; 80053; 80061; 82306; 82652; 84443; 85025; 86140; 86644; 86645; 86665; 87476

== ENCOUNTER 2024-11-30 15:53 | Outpatient (CLI) | payer BC, SELFPAY ==
--- OUTSIDE RECORDS SUMMARY | 2024-11-30 15:55 | XMS_ITS | Clinical Summary ---
Author Organization Healthcare Address [address] [place] [address] Care Team Providers Care Trim Mechanic Name Role Phone Enio Bliss MD Primary Care Provider [phone] Family History Medical History Relation Name Comments Bone cancer Father Cardiac disorder Father Hypertension Father Cardiac disorder Mother Hypertension Mother Kidney cancer Paternal Grandmother Relation Name Status Comments Father Mother Paternal Grandmother Social History Tobacco Use Types Packs/Day Years Used Date Smoking Tobacco: Never Comments Unknown Sex and Gender Information Value Date Recorded Sex Assigned at Not on file Legal Sex Female 8:48 PM EDT Gender Identity Not on file Sexual Orientation Not on file Last Filed Vital Signs Vital Sign Reading Time Taken Comments Blood Pressure - - Pulse - - Temperature - - Respiratory Rate - - Oxygen Saturation - - Inhaled Oxygen Concentration - - Weight 73 kg (161 lb) 04/30/2016 10:18 AM EDT Height 165.1 cm (5' 5 ) 04/30/2016 10:18 AM EDT Body Mass Index 26.79 04/30/2016 10:18 AM EDT Plan of Treatment Not on file Care Teams Trim Mechanic Relationship Specialty Start Date End Date Enio Bliss MD [address] [place] [address] PCP - General 06/23/20
--- OUTSIDE RECORDS SUMMARY | 2024-11-30 15:55 | XMS_ITS | Clinical Summary ---
Author Organization [facility] ystem Address [address] [place] [address] Care Team Providers Care Lead Technician Name Role Phone Enio Bliss MD Primary Care Provider + [phone] Allergies Active Allergy Reactions Criticality Noted Date Comments Promethazine Itching 08/03/2021 Medications tamsulosin (FLOMAX) 0.4 MG capsule 24 hr capsule Take 1 capsule by mouth Daily. 10 capsule 08/03/2021 Active Social History Tobacco Use Types Packs/Day Years Used Date Smoking Tobacco: Never Assessed Abuse Screen Answer Date Recorded Unsafe at Home or Work/School Not on file Feels Threatened by Someone? Not on file 10/2022 Does Anyone Keep You from Co ntacting Others or Doint Things Outside the Home? Not on file 11/18/2022 Physical Sign of Abuse Present Not on file 1 Housing Stability Answer Date Recorded Current Living Arrangements Not on file 10/2022 Potentially Unsafe Housing Conditions Not on barak e 11/18/2022 Family and Community Support Answer Salvador e Recorded Help with Day-to-Day Activities Not on file 11/18/2022 Lonely or Isolated Not on file 11/18/2022 Employment Answer Date Recorded Do you want help finding or keeping work or a moustapha b? Not on file 11/18/2022 Disabilities Answer Date Recorded Concentrating, Remembering, or Making Decisions Difficulty Not on file 11/18/2022 Doing Errands Independently Difficulty Not on fi le 11/18/2022 Education Answer Date Recorded Help with school or training? Not on file Preferred Language Not on file 11/18/2022 Comments No Sex and Gender Information Value Date Recorded Sex Assigned at Not on file Legal Sex Female 10:29 AM EDT Gender Identity Not on file Sexual Orientation Not on file Last Filed Vital Signs Vital Sign Reading Time Taken Comments Blood Pressure 131/66 08/03/2021 3:35 PM EDT Pulse 82 08/03/2021 3:35 PM EDT Temperature 36.9 C (98.4 F) 08/03/2021 3:35 PM EDT Respiratory Rate 16 08/03/2021 3:35 PM EDT Oxygen Saturation 99% 08/03/2021 3:35 PM EDT Inhaled Oxygen Concentration - - Weight 77.1 kg (170 lb) 08/03/2021 3:35 PM EDT Height 160 cm (5' 3 ) 08/03/2021 3:35 PM EDT Body Mass Index 30.11 08/03/2021 3:35 PM EDT Plan of Treatment Health Maintenance Due Date Last Done Comments ANNUAL PHYSICAL 1980 Annual Gynecologic Pelvic an d Breast Exam 1980 HEPATITIS C SCREENING 1979 TDAP/TD VACCINES (1 - Tdap) 1998 MAMMOGRAM 2019 COLOGUARD 2024 COLON CANCER SCREENING 5 YEA R SIGMOIDOSCOPY 2024 COLONOSCOPY [address]24 [address] SCREENING [address]24 CT COLONOGRAPHY 2024 FECAL OCCULT BLOOD TEST 2024 FIT Testing (1 year) 2024 INFLUENZA VACCINE 09/10/2024 Pneumococcal Vaccine 0-49 Aged Out No longer eligible based on patient's age to complete this topic Insurance Member Subscriber Plan / Payer (Ef fective 2018-Present) Name:Leeanne Mcginnis Relation to Subscriber:Spouse Name:BRAYDON MCGINNIS Date of :1979 (Home) Address: [address] [place] [address] Payer ID:[id number] (NAIC) Type:Not on file Address: [address] [place] [id number] Care Teams Lead Technician Relationship Specialty Start Date End Date Enio Bliss MD [address] [facility] PCP - General Adolescent Medicine 08/03/21
== END 2024-11-30 23:59 | disposition home or self-care (01) ==
LOC: RT 15:54
PROVIDERS: PCP Internal Medicine Adolescent Medicine; Visit Provider Physician Assistant
DX: I49.1 Atrial premature depolarization (principal); R94.31 Abnormal electrocardiogram [ECG] [EKG]; R07.9 Chest pain, unspecified
CPT/HCPCS: 93270

== ENCOUNTER 2024-12-10 16:51 | Outpatient (CLI) | payer BC, SELFPAY ==
--- OUTSIDE RECORDS SUMMARY | 2024-12-10 16:54 | XMS_ITS | Clinical Summary ---
Author Organization [facility] ystem Address [address] [place] [address] Care Team Providers Care Sack Cleaning Hand Name Role Phone Enio Bliss MD Primary Care Provider + [phone] Allergies Active Allergy Reactions Criticality Noted Date [...] :1980 (Home) Address: [address] [place] [address] Payer ID:[id number] (NAIC) Type:Not on file Address: [address] [place] [id number] Care Teams Sack Cleaning Hand Relationship Specialty Start Date End Date Enio Bliss MD [address] [facility]31 PCP - General Adolescent Medicine 08/03/21
--- OUTSIDE RECORDS SUMMARY | 2024-12-10 16:54 | XMS_ITS | Clinical Summary ---
Author Organization Healthcare Address [address] [place] [address] Care Team Providers Care Gun Perforator Loader Name Role Phone Enio Bliss MD Primary Care Provider [phone] Family History Medical History Relation Name Comments [...] of Treatment Not on file Care Teams Gun Perforator Loader Relationship Specialty Start Date End Date Enio Bliss MD [address] [place] [address] PCP - General 06/23/20
--- NOTE | 2024-12-10 17:00 | MM_ITS ---
PROCEDURE INFORMATION: Exam: MG Bilateral Screening 3D Mammography Exam date and time: 12/10/2024 4:52 PM Age: 44 years old Clinical indication: Screening. Paternal grandmother had breast cancer. TECHNIQUE: Imaging protocol: Bilateral Screening tomosynthesis and 2D mammography including computer-aided detection (CAD) when performed. COMPARISON: 1. MG DIAG MAMMO W CAD BILAT 03/14/2022 3:15 PM 2. MG MM DIG SCREENING MAMM BI W/CAD 07/26/2020 8:03 AM 3. US BREAST LIMITED RT 03/14/2022 3:41 PM FINDINGS: MAMMOGRAPHY: Breast composition: The breasts are heterogeneously dense, which may obscure small masses. Mass: Questionable 1.0 cm isodense mass in the left central posterior breast, about 11 to 7 o'clock, 9-11 cm from the nipple, CC image [id number] frame 12 and MLO image [id number] frame 32. Architectural distortion: None. Calcifications: No suspicious calcifications. Asymmetric density: None. Skin thickening: None. Axillary adenopathy: None. IMPRESSION: Patient will be recalled for left diagnostic mammography with CC and MLO and left sonography for further evaluation of a questionable mass. ASSESSMENT: BI-RADS Category 0: Incomplete: Need Additional Imaging Evaluation.
== END 2024-12-10 23:59 | disposition home or self-care (01) ==
LOC: RAD 16:52
PROVIDERS: PCP Internal Medicine Adolescent Medicine; Referring Provider Nurse Practitioner Obstetrics & Gynecology; Visit Provider Nurse Practitioner Obstetrics & Gynecology
DX: Z12.31 Encounter for screening mammogram for malignant neoplasm of breast (principal); R92.333 Mammographic heterogeneous density, bilateral breasts; R92.8 Other abnormal and inconclusive findings on diagnostic imaging of breast; Z80.3 Family history of malignant neoplasm of breast
CPT/HCPCS: 77063; 77067

== ENCOUNTER 2024-12-15 06:28 | Outpatient (CLI) | payer BC, SELFPAY ==
--- NOTE | 2024-12-15 | CA_ITS ---
APPROVED REPORT Exam: Exercise Treadmill Technologist: Sharon Mehta Stress Nurse: Jackie OSEI, RN Ht: 5 ft 3 in Wt: 191 lbs BSA: 1.90 m2 HR: 74 bpm BP: 153/80 mmHg Indications: Fatigue, Abnormal ECG, Chest Pain Stress Test Details Test: Exercise stress testing was performed using a Harvey protocol. HR Resting HR: 74 bpm Max Heart Rate (APMHR): 175.023595 bpm Max HR Achieved: 158 bpm Target HR (85% APMHR): 148.730474 bpm % of APMHR: 90.29 Recovery HR: 100 bpm BP Resting BP: 153.0/80.0 mmHg Max BP: 186.0/81.0 mmHg Recovery BP: 153.0/84.0 mmHg ECG Resting ECG: Sinus rhythm Stress ECG Conclusion Requested to stop test due to dyspnea at 5:20. Symptoms: Dyspnea Arrhythmias/Ectopy: PAC ST-T Changes: Less than 0.[address] segment changes. Conclusion: Robles Treadmill Score: + 5 Electronically signed by : Alaina Umana MD 12/15/2024 12:33:03
--- NOTE | 2024-12-15 06:30 | NM_ITS ---
APPROVED REPORT Exam: Nuclear Stress Test Indication: Chest pain, SOB, HTN, Family history Patient Location: Outpatient Stress Tech: Sharon Mehta NM Tech:Lani Godwin, ARRT, RT (R)(N) Ht: 5 ft 3 in Wt: 190 lbs Bra Size: 38C HR: 66 bpm BP: 153/80 mmHg BSA: 1.89 m2 TID: 1.11 BMI: 33.6 History: Chest pain, SOB, HTN, Family history Procedure: Patient exercised on Harvey protocol 5:20 minutes and sec, resting heart rate 66 bpm, resting blood pressure 153/80 mmHg, with exercise maximum heart rate achived was 158 bpm which is % of the maximum predicted heart rate and blood pressure was 186/81 mmHg. Test was stopped due to SOB. Patient denied any complaint of chest pain. Patient has average exercise capacity, achieved 7.1 METs of workload on treadmill, the blood pressure response to exercise was normal. Cardiac Stress and Resting SPECT Images: Cardiac Stress and Resting SPECT images were obtained using technetium 99m Myoview 31.5 mCi stress and 10.51 mCi at rest. Resting and stress imaging in supine and prone positions demonstrate no evidence of fixed or reversible perfusion defects. Gated imaging demonstrates normal global LV systolic function. LVEF is calculated at 56%. Conclusion: No evidence of fixed or reversible perfusion defects. Gated imaging demonstrates normal global LV systolic function. LVEF is calculated at 56%. Electronically signed by : Alaina Umana MD 12/15/2024 12:26:23
--- OUTSIDE RECORDS SUMMARY | 2024-12-15 06:31 | XMS_ITS | Clinical Summary ---
Author Organization [facility] ystem Address [address] [place] [address] Care Team Providers Care Granulator Name Role Phone Enio Bliss MD Primary Care Provider + [phone] Allergies Active Allergy Reactions Criticality Noted Date [...] :1980 (Home) Address: [address] [place] [address] Payer ID:[id number] (NAIC) Type:Not on file Address: [address] [place] [phone] Care Teams Granulator Relationship Specialty Start Date End Date Enio Bliss MD [address] [facility]31 PCP - General Adolescent Medicine 08/03/21
--- OUTSIDE RECORDS SUMMARY | 2024-12-15 06:31 | XMS_ITS | Clinical Summary ---
Author Organization Healthcare Address [address] [place] [address] Care Team Providers Care Meteorological Technician Name Role Phone Enio Bliss MD Primary Care Provider + [phone] Family History Medical History Relation Name Comments [...] of Treatment Not on file Care Teams Meteorological Technician Relationship Specialty Start Date End Date Enio Bliss MD [address] [place] [address] PCP - General 06/23/20
[2024-12-15 07:50] VITALS: BP 153/80; BP 186/81; PULSE 74; RESP 14
[2024-12-15] MEDS: SODIUM CHLORIDE 0.9% 10ML SYR (RAD ONLY) 10 ML IV ×2 (08:21)
[2024-12-15] MEDS: ISOTOPE MYOVIEW (PER STUDY) 1 DOSE IV (08:21)
--- NOTE | 2024-12-15 08:45 | CA_ITS ---
APPROVED REPORT EXAM: Comprehensive 2D, Doppler, and color-flow Echocardiogram Insurance Underwriter: Sarah Turner RT(R) Ht: 5 ft 3 in Wt: 191lbs BSA: 1.90 BP: 160/86 mmHg Indications: chest pain, abn EKG Echo Enhancing Agent Indication: Rule out Shunt Agent(s) / Amount(s) Used: Agitated Saline 15 cc 2D Dimensions EF AP4 55.70 % GL Strain -20.9 % M-Mode Dimensions RVDd 2.18 cm (0.9-2.6) LA Diam 2.94 cm (1.9-4.0) LVDd 4.33 cm (3.5-5.7) LVDs 3.11 cm (3.5-5.7) IVSd 0.54 cm (0.6-1.1) PWd 0.64 cm (0.6-1.1) EF (Teich) 54.70% FS 28.20% EDV (Teich) 84.40 mL ESV (Teich) 38.20 mL LV Diastology E Decel Time 123 (160-240 msec) E/A Ratio 0.76 Mitral Valve MV A Velocity 64.0 (40-130 cm/s) E/A Ratio 0.76 Tricuspid Valve TR P. Velocity 186.00 cm/s Left Ventricle The left ventricle is normal size. Left ventricular systolic function is normal. The left ventricular ejection fraction is within the normal range. There is normal left ventricular wall thickness. There is normal LV segmental wall motion. Transmitral Doppler flow pattern suggests impaired LV relaxation. LVEF is 55% Right Ventricle The right ventricle is normal size. The right ventricular systolic function is normal. Atria The left atrium size is normal. The right atrium size is normal. There is no color Doppler evidence of interatrial shunt. Agitated saline administration demonstrates no evidence of interatrial shunt. Aortic Valve The aortic valve opens well. There is no hemodynamically significant aortic valvular stenosis. No aortic regurgitation is present. Mitral Valve The mitral valve is normal in structure. No evidence of mitral valve stenosis. Trace mitral regurgitation is present. Tricuspid Valve The tricuspid valve leaflets are thin and pliable. Trace tricuspid regurgitation. There is insufficient TR jet to estimate RVSP. Pulmonic Valve The pulmonary valve is grossly normal in structure. Trace pulmonic valve regurgitation is present. Great Vessels The aortic root is normal in size. IVC is normal in size and collapses >50% with inspiration. Pericardium There is no pericardial effusion. Other Information Study Quality: Fair Conclusion Normal biventricular systolic function. No significant valvular stenosis or regurgitation. Agitated saline administration demonstrates no evidence of interatrial shunt. Electronically signed by : Alaina Umana MD 12/27/2024 12:45:12
== END 2024-12-15 23:59 | disposition home or self-care (01) ==
LOC: RAD 06:29
PROVIDERS: PCP Internal Medicine Adolescent Medicine; Visit Provider Physician Assistant
DX: I49.1 Atrial premature depolarization (principal); I10 Essential (primary) hypertension; R94.31 Abnormal electrocardiogram [ECG] [EKG]; R53.83 Other fatigue
CPT/HCPCS: 78452; 93017; 93018; 93306; A9502

== ENCOUNTER 2025-01-11 14:56 | Outpatient (CLI) | payer BC, SELFPAY ==
--- OUTSIDE RECORDS SUMMARY | 2025-01-11 15:04 | XMS_ITS | Clinical Summary ---
Author Organization Healthcare Address [address] [place] [address] Care Team Providers Care Veneer Joiner Name Role Phone Enio Bliss MD Primary Care Provider + [phone] Family History Medical History Relation Name Comments [...] of Treatment Not on file Care Teams Veneer Joiner Relationship Specialty Start Date End Date Enio Bliss MD [address] [place] [address] PCP - General 06/23/20
--- OUTSIDE RECORDS SUMMARY | 2025-01-11 15:04 | XMS_ITS | Clinical Summary ---
Author Organization [facility] ystem Address [address] [place] [address] Care Team Providers Care Extras Casting Director Name Role Phone Enio Bliss MD Primary Care Provider + [phone] Allergies Active Allergy Reactions Criticality Noted Date [...] :1980 (Home) Address: [address] [place] [address] Payer ID:[id number] (NAIC) Type:Not on file Address: [address] [place] [phone] Care Teams Extras Casting Director Relationship Specialty Start Date End Date Enio Bliss MD [address] [facility]31 PCP - General Adolescent Medicine 08/03/21
--- NOTE | 2025-01-11 15:15 | MM_ITS ---
PROCEDURE INFORMATION: Exam: MG Left Diagnostic Breast Tomosynthesis Exam date and time: 01/11/2025 2:59 PM Age: 44 years old Clinical indication: Callback from screening for a left breast mass. TECHNIQUE: Imaging protocol: Left Diagnostic tomosynthesis and 2D mammography including computer-aided detection (CAD) when performed. Unilateral or bilateral exam. COMPARISON: MG MM DIG SCREENING MAMM BI W/CAD 12/10/2024 4:52 PM FINDINGS: MAMMOGRAPHY: Breast composition: There are scattered areas of fibroglandular density. Breast mammogram findings: Possible glandular focal asymmetry in the left breast central aspect, best appreciated on the MLO view measuring 1 cm. This is believed to be in the slightly lateral aspect on the craniocaudal spot. There is no suspicious distortion or calcifications. IMPRESSION: Glandular parenchymal asymmetry in the central aspect of the left breast, slightly lateral. Targeted ultrasound scanning of the left breast in the retroareolar region as well as from the 10-2 o'clock axis is recommended. If no sonographic finding is seen, a six-month follow-up mammogram would be recommended. ASSESSMENT: BI-RADS Category 0: Incomplete- Need Additional Imaging Evaluation.
== END 2025-01-11 23:59 | disposition home or self-care (01) ==
LOC: RAD 14:57
PROVIDERS: PCP Internal Medicine Adolescent Medicine; Visit Provider Nurse Practitioner Obstetrics & Gynecology
DX: N63.20 Unspecified lump in the left breast, unspecified quadrant (principal); R92.322 Mammographic fibroglandular density, left breast; N64.89 Other specified disorders of breast
CPT/HCPCS: 77061; 77065; G0279

== ENCOUNTER 2025-01-20 12:41 | Outpatient (CLI) | payer BC, SELFPAY ==
--- NOTE | 2025-01-20 14:30 | CT_ITS ---
FINAL REPORT TECHNIQUE: Axial images were obtained through the chest without contrast. Reconstructed images were obtained and reviewed. This study was performed with techniques to keep radiation doses as low as reasonably achievable, (ALARA). Individualized dose reduction techniques using automated exposure control or adjustment of mA and/or kV according to the patient's size were employed. CLINICAL HISTORY: dyspnea FINDINGS: There is no significant mediastinal mass or adenopathy. The heart size is normal. There is no pericardial or pleural effusion. No suspicious infiltrate or nodule identified. Limited images of the upper abdomen show no acute abnormality. The gallbladder is absent. IMPRESSION: No acute process. Reviewed, Interpreted and Dictated by Mert Feliz MD Transcribed by Zahra Ivey Authenticated and [facility]
--- NOTE | 2025-01-20 15:00 | US_ITS ---
PROCEDURE INFORMATION: Exam: US Left Breast, Complete Exam date and time: 01/20/2025 2:11 PM Age: 44 years old Clinical indication: Glandular parenchymal asymmetry in the left central breast TECHNIQUE: Imaging protocol: Complete ultrasound of all four quadrants of the left breast and the retroareolar regions, including ultrasound of the axilla when performed. This study was interpreted in real time. The patient received the results. COMPARISON: MG MM DIG MAMM DX UNILAT LT CAD 01/11/2025 2:59 PM FINDINGS: ULTRASOUND: Breast ultrasound findings: Ultrasound of the left breast is performed. There is a dermal fluid collection at 6 o'clock, 2 cm from the nipple that measures 1.0 x 0.7 x 0.2 cm. This is benign and likely inflammatory in nature. Clinical follow-up as needed is recommended. In the left breast upper outer quadrant, 1 o'clock axis, 3 cm from the nipple there is a complicated cyst that measures 0.6 x 0.2 x 0.4 cm. In the 1 o'clock axis, 2 cm from the nipple there is another complicated cyst that measures 0.3 x 0.5 x 0.6 cm. There is no suspicious mass, shadowing, or distortion. IMPRESSION: 1. Dermal lesion in the left breast 6 o'clock axis, 2 cm from the nipple. Clinical follow-up as needed is recommended. Further evaluation of a palpable abnormality should be based on clinical grounds regardless of radiographic findings or lack thereof. 2. Complicated cysts in the left breast 1 o'clock axis as above. Six-month follow-up left breast ultrasound is recommended for these findings. A six-month follow-up mammogram is also recommended to follow-up the glandular parenchymal asymmetry that was seen on mammogram dated 01/11/2025. ASSESSMENT: BI-RADS Category 3: Probably benign.
== END 2025-01-20 23:59 | disposition home or self-care (01) ==
LOC: RT 12:41
PROVIDERS: PCP Internal Medicine Adolescent Medicine; Visit Provider Physician Assistant
DX: R53.82 Chronic fatigue, unspecified (principal); R94.31 Abnormal electrocardiogram [ECG] [EKG]; R07.1 Chest pain on breathing; N63.22 Unspecified lump in the left breast, upper inner quadrant
CPT/HCPCS: 71250; 76641; 94060; 94726; 94729